=== PATIENT | female | born 1940 | race Caucasian/White ===

== ENCOUNTER 2021-12-17 12:35 | Outpatient (CLI) | payer MEDICARE, OTHER | END 2021-12-17 12:36 | disposition critical access hospital (66) | LOC: EMS 12:35 | DX: R51.9 Headache, unspecified (principal); M54.2 Cervicalgia | CPT/HCPCS: A0425; A0429 ==

== ENCOUNTER 2021-12-17 12:57 | Emergency (ER) | payer MEDICARE, OTHER ==
[2021-12-17 13:18] VITALS: BP 119/106
--- NOTE | 2021-12-17 13:25 | ED Physician Documentation ---
PD HPI HEADACHE - Stated complaint Stated Complaint: HEADACHE - Chief complaint Chief Complaint: General - History obtained from History obtained from: Patient, Family, EMS - History of Present Illness Timing - onset: Enter time (1145), Today Timing - onset during: Rest Timing - duration: Hours Timing - details: Abrupt onset, Now resolved Location: Left Quality: Throbbing Associated symptoms: Stiff neck, Nausea. No: Fever, Vomiting, Weakness, Numbness, Syncope, Seizure, Eye pain, Vision changes Improved by: Rest Worsened by: Moving Contributing factors: Anticoagulated, Hypertension Similar symptoms before: Has not had sx before Recently seen: Other (had COVID booster this morning at 8am) - Additional information Additional information: 81-year-old Leigha Huffman who does have some short-term memory loss has had her COVID booster administered this morning at 830 and at 1145 she developed an acute left-sided headache that was throbbing in nature. This headache persisted and the patient was brought to the hospital by her daughter with acute left- sided throbbing headache. Since admission into the emergency department the patient has had improvement in her symptoms and now only has pain with movement of her head. Review of Systems Constitutional: denies: Fever, Myalgias Eyes: denies: Decreased vision Ears: denies: Ear pain Nose: denies: Congestion Throat: denies: Sore throat Cardiac: denies: Chest pain / pressure Respiratory: denies: Dyspnea, Cough GI: reports: Nausea. denies: Vomiting : denies: Dysuria, Frequency Skin: denies: Rash Musculoskeletal: denies: Neck pain, Back pain, Extremity pain PD PAST MEDICAL HISTORY - Past Medical History Past Medical History: Yes Neuro: Dementia - Social History Does the pt smoke?: No Smoking Status: Never smoker Does the pt drink ETOH?: No Does the pt have substance abuse?: No - Immunizations Immunizations are current?: Yes - POLST Patient has POLST: No PD ED PE NORMAL - Vitals Vital signs reviewed: Yes (hypertensive ) - General General: No acute distress, Well developed/nourished, Other (wakes up from sleep feeling well ) - HEENT HEENT: Atraumatic, PERRL, EOMI - Neck Neck: Supple, no meningeal sign, No bony TTP - Cardiac Cardiac: No murmur, Other (irregularly irregular ) - Respiratory Respiratory: No respiratory distress, Clear bilaterally - Abdomen Abdomen: Soft, Non tender - Back Back: No CVA TTP, No spinal TTP - Derm Derm: Normal color, Warm and dry, No rash - Extremities Extremities: No deformity, No edema - 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 No acute intracranial findings. Findings likely associated with chronic microvascular ischemia.), EMP read indepedently, See rad report Procedures - IVC sono (time) 1322 Bedside IVC sono: IVC measures (cm) (1.65), Euvolemia PD MEDICAL DECISION MAKING - ED course Complexity details: reviewed old records, reviewed results, re-evaluated patient, considered differential, d/w patient, d/w family ED course: 81-year-old female on Eliquis developed acute headache following immunization with a COVID booster. During her stay in the emergency department she has had resolution of her headache and we did do a CT scan of her head which was unremarkable. The patient is discharged to home in stable and improved condition Departure - Departure Disposition: 01 Home, Self Care Clinical Impression: Headache after vaccination Instructions: ED Headache Tension Follow-Up: SHANEKA WAGONER MD [Primary Care Provider] - Discharge Date/Time: 12/17/21 15:43
--- NOTE | 2021-12-17 14:55 | CT Report ---
PROCEDURE: HEAD WO INDICATIONS: Left sided headache TECHNIQUE: Noncontrast 4.5 mm thick angled axial sections acquired from the foramen magnum to the vertex. For r adiation dose reduction, the following was used: automated exposure control, adjustment of mA and/or kV according to patient size. COMPARISON: None. FINDINGS: Image quality: Excellent. CSF spaces: Basal cisterns are patent. No extra-axial fluid collections. Ventricles are normal in size and shape. Brain: No midline shift. No intracranial masses or hemorrhage. There is volume loss likely associat ed with microvascular ischemic changes. Summers-white matter interface is normal. Skull and face: Calvarium and visualized facial bones are intact, without suspicious lesions. Sinuses: Visualized sinuses and mastoids are clear. IMPRESSION: 1. No acute intracranial findings. 2. Findings likely associated with chronic microvascular ischemia. Reviewed by: Shiela Zamora MD on 12/17/2021 2:54 PM PDT Approved by: Shiela Zamora MD on 12/17/2021 2:54 PM PDT Station ID: [id number]
== END 2021-12-17 15:43 | disposition home or self-care (01) ==
LOC: ED 12:57
DX: R51.9 Headache, unspecified (principal); R11.0 Nausea; T50.B95A Adverse effect of other viral vaccines, initial encounter; I10 Essential (primary) hypertension; Z79.01 Long term (current) use of anticoagulants
CPT/HCPCS: 99282; 99284

== ENCOUNTER 2022-01-20 14:43 | Outpatient (CLI) | payer MEDICARE, OTHER ==
--- NOTE | 2022-01-20 19:25 | XRAY Report ---
PROCEDURE: Ankle 3 View RT INDICATIONS: RT ANKLE PX TECHNIQUE: 3 views of the ankle were acquired. COMPARISON: None FINDINGS: Bones: No fractures or dislocations. Ankle mortise is normally aligned. No suspicious bony lesions . Generalized decreased osseous mineralization present. Posterior and plantar calcaneal spur noted. Posterior calcaneal soft tissue swelling noted. Soft tissues: No tibiotalar joint effusion. Achilles tendon appears normal. IMPRESSION: Osteopenia without fracture or foreign body Posterior calcaneal soft tissue swelling. Consider follow-up MRI evaluation Reviewed by: Fabio Odell MD on 01/20/2022 6:24 PM [facility] Approved by: Fabio Odell MD on 01/20/2022 6:24 PM [facility] Station ID: [id number]
== END 2022-01-20 14:44 | disposition home or self-care (01) ==
LOC: DI 14:43
PROVIDERS: ATTEND Family Medicine
DX: M25.571 Pain in right ankle and joints of right foot (principal); M85.871 Other specified disorders of bone density and structure, right ankle and foot; M79.89 Other specified soft tissue disorders

== ENCOUNTER 2022-02-10 15:55 | Outpatient (CLI) | payer MEDICARE, OTHER ==
--- NOTE | 2022-02-10 16:24 | XRAY Report ---
PROCEDURE: Chest 2 View X-Ray INDICATIONS: COUGH TECHNIQUE: 2 views of the chest were acquired. COMPARISON: None FINDINGS: Surgical changes and devices: There is a dual-lead left-sided cardiac pacer with leads in standard po sition. Lungs and pleura: No pleural effusions or pneumothorax. Lungs are clear. Lung volumes are low with vascular crowding. Mediastinum: Mediastinal contours are normal. There is mild to moderate cardiomegaly present. Bones and chest wall: No suspicious bony abnormalities. Soft tissues appear unremarkable. IMPRESSION: 1. Mild to moderate cardiomegaly. 2. Low lung volumes with vascular crowding. Reviewed by: Dilip Morales MD on 02/10/2022 4:23 PM PST Approved by: Dilip Morales MD on 02/10/2022 4:23 PM PST Station ID: [id number]
== END 2022-02-10 15:56 | disposition home or self-care (01) ==
LOC: DI 15:55
PROVIDERS: ATTEND Family Medicine
DX: R05.9 Cough, unspecified (principal); I51.7 Cardiomegaly

== ENCOUNTER 2022-04-14 17:43 | Outpatient (CLI) | payer MEDICARE, OTHER ==
--- NOTE | 2022-04-14 19:55 | Ultrasound Report ---
PROCEDURE: Duplex Ext Veins Right INDICATIONS: SWELLING OF RIGHT LEG TECHNIQUE: Real-time imaging, as well as color and pulse Doppler interrogation, were performed of the lower extr emity deep veins from the inguinal ligament to the popliteal fossa. COMPARISON: None. FINDINGS: The deep veins are normally compressible, and free of intraluminal thrombus. Color and pu lse Doppler demonstrate normal phasic intraluminal flow. There is normal augmentation response to di stal compression maneuver. IMPRESSION: Limited exam due to large body habitus. Calf veins are not well seen. No DVT. Patient sue torres was unable tolerate compressions. 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 Reviewed by: Hayder Ann MD on 04/14/2022 7:54 PM PST Approved by: Hayder Ann MD on 04/14/2022 7:54 PM PST Station ID: [id number]
== END 2022-04-14 17:44 | disposition home or self-care (01) ==
LOC: DI 17:43
PROVIDERS: ATTEND Family Medicine
DX: M79.89 Other specified soft tissue disorders (principal); M71.21 Synovial cyst of popliteal space [Baker], right knee

== ENCOUNTER 2023-07-05 19:23 | Outpatient (CLI) | payer MEDICARE, OTHER | END 2023-07-05 23:59 | disposition EMS.NT | LOC: EMS 19:23 | DX: Z03.89 Encounter for observation for other suspected diseases and conditions ruled out (principal) ==

== ENCOUNTER 2023-07-07 19:47 | Outpatient (CLI) | payer MEDICARE, OTHER | END 2023-07-07 19:48 | disposition critical access hospital (66) | LOC: EMS 19:47 | DX: Z48.03 Encounter for change or removal of drains (principal) | CPT/HCPCS: A0425; A0429 ==

== ENCOUNTER 2023-07-07 20:08 | Emergency (ER) | payer MEDICARE, OTHER ==
--- NOTE | 2023-07-07 21:25 | ED Physician Documentation ---
History of Present Illness - Stated complaint Stated Complaint: LEFT DRAIN TUBE CAME OUT, S/P BILAT MASECTOMY - Chief complaint Chief Complaint: General - History obtained from History obtained from: Patient, Family - History of Present Illness Timing: Today Pain level max: 0 Pain level now: 0 - Additonal information Additional information: 83-year-old female states that she had a mastectomy yesterday at [facility] in [place]. She lives at [facility] and has dementia. Her daughter states that the left CHARITY drain fell out today. They called the surgeon who recommended they monitor for swelling at home, they were not comfortable with this and wanted to be evaluated therefore they came to the emergency department. Review of Systems Unable to obtain: Dementia PD PAST MEDICAL HISTORY - Past Medical History Neuro: Dementia - Allergies Allergies/Adverse Reactions: Allergies Allergy/AdvReac Type Severity Reaction Status Date / Time No Known Drug Allergies Allergy Verified 07/07/23 20:20 - Social History Does the pt smoke?: No Smoking Status: Never smoker Does the pt drink ETOH?: No Does the pt have substance abuse?: No - Immunizations Immunizations are current?: Yes - POLST Patient has POLST: No PD ED PE NORMAL - Vitals Vital signs reviewed: Yes - General General: No acute distress, Well developed/nourished, Other (Alert, pleasant, oriented to self only) - HEENT HEENT: PERRL, Moist mucous membranes - Neck Neck: Supple, no meningeal sign - Cardiac Cardiac: RRR, Other (Incisions are clean, dry, intact. There is a CHARITY drain on the right side with serosanguineous fluid. No drain on the left.) - Respiratory Respiratory: No respiratory distress, Clear bilaterally - Abdomen Abdomen: Soft, Non tender, Non distended - Derm Derm: Warm and dry - Neuro Neuro: Other (Alert, pleasant, oriented to self only) - Psych Psych: Normal mood, Normal affect Results - Vitals Vitals: Vital Signs - 24 hr 07/07/23 07/07/23 20:16 21:40 Temperature 36.3 C L Heart Rate 89 80 Respiratory 18 18 Rate Blood Pressure 124/101 H 97/83 H O2 Saturation 99 98 Oxygen O2 Source Room air PD Medical Decision Making - ED course Complexity details: reviewed results, re-evaluated patient, considered differential, d/w family ED course: Patient had a CHARITY drain fell out after bilateral mastectomy. No significant swelling. Incisions are clean and dry. Recommend that she follow-up with her surgeon for further care. Family counseled regarding signs and symptoms for which I believe and urgent re-evaluation would be necessary. Family with good understanding of and agreement to plan and is comfortable going home at this time This document was made in part using voice recognition software. While efforts are made to proofread this document, sound alike and grammatical errors may occur. Departure - Departure Disposition: 01 Home, Self Care Clinical Impression: Encounter for postoperative wound check Condition: Good Instructions: ED Wound Care Follow-Up: SERGIO MOSER PA-C [Primary Care Provider] - Comments: Continue to monitor for any swelling at home. Please follow-up with your surgeon for further care. Forms: PCP List Discharge Date/Time: 07/07/23 21:40
[2023-07-07 21:40] VITALS: BP 97/83; O2SAT 98
== END 2023-07-07 21:40 | disposition home or self-care (01) ==
LOC: EDUNIT# → ED 20:08
DX: Z48.816 Encounter for surgical aftercare following surgery on the genitourinary system (principal); Z90.13 Acquired absence of bilateral breasts and nipples
CPT/HCPCS: 99282; 99283

== ENCOUNTER 2023-08-31 13:15 | Outpatient (CLI) | payer MEDICARE, OTHER | END 2023-08-31 13:30 | disposition home or self-care (01) | LOC: LAB.N 13:15 | PROVIDERS: ATTEND Family Medicine | DX: L76.32 Postprocedural hematoma of skin and subcutaneous tissue following other procedure (principal) | CPT/HCPCS: 87070; 87205 ==